=== PATIENT | female | born 1980 | race Hispanic/Latino ===

== ENCOUNTER → 2022-12-30 | Outpatient (CLI) | payer BC ==
[~2022-12-30] MED LIST: DAPA10TA PO; HUMLIS7525 SQ; INSU100V33 SQ; IOHEXOL-350 75 ML VIAL IV ONE; METF-527 PO; METO50TA18 PO; TRAM50TA4 PO
== END | disposition home or self-care (01) ==
LOC: RAH 11:32
PROVIDERS: ATTEND Family Medicine
DX: K80.20 Calculus of gallbladder without cholecystitis without obstruction (principal); R10.9 Unspecified abdominal pain
CPT/HCPCS: 74177; Q9967